=== PATIENT | male | born 1970 ===

== ENCOUNTER 2016-10-05 12:10 | Observation (INO) | payer SELFPAY ==
[2016-10-05] MEDS ORDERED: ONDANSETRON DISINTEGRATING 4 MG TAB PO PRN (15:25)
[2016-10-05] MEDS ORDERED: ACETAMINOPHEN 325 MG TAB PO PRN (15:25)
[2016-10-05] MEDS ORDERED: ONDANSETRON 4 MG/2 ML VIAL IVP PRN (15:25)
[2016-10-05 16:07] LABS: % IMMATURE GRANULYOCYTES 0.4 % (0.0-1.1); ABSOLUTE IMMATURE GRANULOCYTES 0.02 10^3/uL (0.00-0.10); ADD DIFF? NO; ADD MORPH? NO; ADD SCAN? NO; ATYPICAL LYMPHOCYTE FLAG 50 (0-99); FRAGMENT RBC FLAG 0 (0-99); HEMOGLOBIN 16.5 g/dL (13.7-17.5); LEFT SHIFT FLG 0 (0-99); LIPEMIA HEMOLYSIS FLAG 90 (0-99); MEAN CELL HEMOGLOBIN 30.4 pg (27.9-34.1); MEAN CELL HEMOGLOBIN CONCENTR. 34.4 g/dL (32.4-36.7); MEAN CELL VOLUME 88.4 fL (81.5-99.8); MEAN PLATELET VOLUME 10.1 fL (8.7-11.7); PLATELET CLUMPS FLAG 10 (0-99); PLATELET COUNT 216 10^3/uL (150-400); RED BLOOD CELL COUNT 5.43 10^6/uL (4.40-6.38); RED CELL DISTRIBUTION WIDTH 12.2 % (11.5-15.2)
--- NOTE | 2016-10-05 16:10 | GHP ---
[f rep st] HISTORY AND PHYSICAL DATE OF ADMISSION: 10/05/2016 DATE OF EVALUATION: 10/05/2016 CHIEF COMPLAINT: Worsening preseptal cellulitis. HISTORY OF PRESENT ILLNESS: This is a 45-year-old man who initially developed some pain in his right eye about 9 days ago. He was seen as an outpatient, started on eye drops at that point. He re-pres ented to [facility] with worsening symptoms. At that point, he was admitted, given IV Laura syn and clindamycin, then discharged with Augmentin as well as Bactrim. At some point after discharg e, which was on the 4th of this month, the symptoms went from his right eye and also affected his lef t eye. He thus represents to the stand-alone emergency room at [facility] for reevaluation. Today, he tells me that he has had some intermittent fevers. He has significant pain as well as phot ophobia bilaterally. He has some diplopia as well as pain with eye movements. He has been taking an tibiotics as prescribed. I have discussed with Dr. Flynn with Ophthalmology, who will see him peyman melendez. PAST MEDICAL/SURGICAL HISTORY: Hyperlipidemia. MEDICATIONS: Augmentin and Bactrim. ALLERGIES: No known drug allergies. FAMILY HISTORY: His mother had an GA. His father of adrenal cancer. SOCIAL HISTORY: He drinks occasionally. He does not smoke. He does have a history of IV drug use, but he has not used any intravenous drugs for about 5 years. REVIEW OF SYSTEMS: A 10-point review of systems is conducted and is negative except for HPI. PHYSICAL EXAM: VITAL SIGNS: Blood pressure 106/62, heart rate is 76, respiration rate 20, satting a t 93% on room air. Temperature is 37.1. GENERAL: The patient is a pleasant man who appears somewha t uncomfortable lying in a dark room. HEENT: Bilateral edema as well as erythema surrounding both o f his eyes, including his eyelids. Exam is difficult as he has trouble opening his eyes given the ed roxana as well as photophobia. He does have significant conjunctivitis as well as chemosis present. CA RDIOVASCULAR: Regular rate and rhythm. No murmurs, rubs, or gallops. PULMONARY: Lungs clear to au scultation bilaterally. ABDOMEN: Soft, nontender, nondistended. SKIN: No rash. He does have mult iple tattoos. : No Newell. NEUROLOGIC: Exam shows him to be alert and oriented x3. He is moving all extremities. PSYCHIATRIC: Normal mood and affect. LABS: I have ordered labs and these are pending at this time. DATA: 1. I discussed this with Dr. Flynn as above. 2. I have ordered a CT of his orbits as this was not brought with him. IMPRESSION AND PLAN: This is a 45-year-old man who presents with possible periorbital versus orbital cellulitis. 1. Cellulitis: I have discussed with Ophthalmology, who will see him. I have placed a call to Dr. Osborn with Infectious Disease to help guide antibiotic therapy. It seems the reasonable choices wou ld be vancomycin and Rocephin or vancomycin and Zosyn if this is orbital cellulitis. 2. History of IV drug use: I have ordered HIV as well as hepatitis. /[id number]/MODL
[2016-10-05 16:15] LABS: INR 1.05 (0.83-1.16); PROTIME(PATIENT) 13.6 SEC (12.0-15.0)
[2016-10-05] MEDS ORDERED: CEFEPIME HCL 2 GM in D5W 100 ML IV SCH ×2 (16:30→22:00)
[2016-10-05] MEDS ORDERED: VANCOMYCIN 1.25 GM in D5W 250 ML IV ONE (16:30)
[2016-10-05 16:33] LABS: ALANINE AMINOTRANSFERASE 55 IU/L (21-72); ALBUMIN 4.3 g/dL (3.5-5.0); ALKALINE PHOSPHATASE 57 IU/L (38-126); ANION GAP 11 mEq/L (8-16); ASPARTATE AMINOTRANSFERASE 29 IU/L (17-59); BILIRUBIN,TOTAL 0.7 mg/dL (0.1-1.4); CALCIUM 9.5 mg/dL (8.5-10.4); CARBON DIOXIDE 24 mEq/l (22-31); CHLORIDE 103 mEq/L (97-110); CREATININE 1.3 mg/dL (0.7-1.3); GLOMERULAR FILTRATION RATE 60; GLUCOSE 78 mg/dL (70-100); POTASSIUM 4.8 mEq/L (3.5-5.2); SODIUM 138 mEq/L (134-144); TOTAL PROTEIN 7.3 g/dL (6.3-8.2)
[2016-10-05] MEDS ORDERED: POLYMYXIN B SULFATE/TMP 10 ML OPHT.BTL EACHEYE SCH (18:00)
[2016-10-05] MEDS: TOBRAMYCIN/DEXAMETH 5 ML OPHT.BTL EACHEYE SCH ×2 (18:48→22:46)
[2016-10-05] MEDS: oxyCODONE IR 5 MG TAB PO PRN (18:48)
[2016-10-06] MEDS ORDERED: VANCOMYCIN HCL/NORMAL SALINE 250 ML IV ONE
[2016-10-06] MEDS: oxyCODONE IR 5 MG TAB PO PRN ×2 (02:45→20:37)
[2016-10-06] MEDS: TOBRAMYCIN/DEXAMETH 5 ML OPHT.BTL EACHEYE SCH ×6 (02:47→20:39)
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
[2016-10-06] MEDS ORDERED: VANCOMYCIN HCL/NORMAL SALINE 250 ML IV SCH (05:00)
--- NOTE | 2016-10-06 11:07 | HOSPPROG ---
Hospitalist Progress Note Assessment/Plan: * severe conjunctivitis * since he has been hospitalized once before and does not have good follow-up due to lack of insurance will keep another day to make sure that he is clearly improving before discharge * continue tobramycin/ dexamethasone drops * discuss with Infectious Disease - probable adenovirus Subjective: eyes feel little bit better today. Quite a bit of photosensitivity Objective: Vital Signs Temp Pulse Resp BP Pulse Ox 36.6 C 86 18 119/70 94 10/06/16 08:00 10/06/16 08:00 10/06/16 08:00 10/06/16 08:00 10/06/16 08:00 Laboratory Results 10/05/16 15:55 10/05/16 15:55 10/05/16 10/06/16 10/07/16 05:59 05:59 05:59 Intake Total 300 Balance 300 PT 13.6 SEC (12.0-15.0) 10/05/16 15:55 INR 1.05 (0.83-1.16) 10/05/16 15:55 - Physical Exam Constitutional: no apparent distress, appears nourished, not in pain Eyes: other ( bilateral severe conjunctivae injection with some periorbital erythema) Respiratory: no respiratory distress Neurologic: AAOx3 Psychiatric: interacting appropriately, not anxious, not encephalopathic, thought process linear
--- NOTE | 2016-10-06 11:21 | PCMIDPN ---
Assessment/Plan: Assessment/Plan: * Severe bilateral conjunctivitis: Left eye with slight improvement today which may be attributable to steroid portion of eye drops. Suspect this most likely will be related to adenovirus. No evidence of periorbital or orbital cellulitis. Skin changes under eyes likely related to edema from eye discharge and rubbing. Await respiratory virus PCR panel and urine GC/Chlamydia. Continue to observe off systemic antibacterials. Additional late entry: Respiratory virus PCR is positive for adenovirus. Highly suggestive that conjunctivitis is also due to adenovirus. 10/06/16 11:18 10/06/16 17:58 Subjective: Patient with less pain and irritation in left eye. Right eye still painful with photophobia and scratchy sensation. Objective: Vital Signs Temp Pulse Resp BP Pulse Ox 36.9 C 77 18 124/73 H 94 10/06/16 11:15 10/06/16 11:15 10/06/16 11:15 10/06/16 11:15 10/06/16 11:15 Laboratory Results 10/05/16 15:55 10/05/16 15:55 10/05/16 10/06/16 10/07/16 05:59 05:59 05:59 Intake Total 300 Balance 300 No antibiotic therapy TobraDex eyedrops Respiratory virus PCR panel pending Urine GC and Chlamydia pending - Physical Exam General Appearance: alert, other (Mild distress with opening of right greater than left eye) EENT: other (Marked bilateral conjunctival injection although less prominent on left; slight violaceous hue below both eyes with resolving edema; no erythema or periorbital tenderness) Respiratory: lungs clear, No respiratory distress Neck: supple Cardiac/Chest: regular rate, rhythm, No systolic murmur Lymphatic: no adenopathy (Preauricular location) ICD10 Worksheet Patient Problems: Problems Problem Status Diagnosed Conjunctivitis of both eyes Acute
[2016-10-06 12:00] LABS: RESPPCR RESULT SEE COMMENTS
[2016-10-06 13:23] LABS: CHLAMYDIA AMPLIFICATION GENPRB NEGATIVE (NEGATIVE)
[2016-10-07] MEDS: TOBRAMYCIN/DEXAMETH 5 ML OPHT.BTL EACHEYE SCH ×3 (01:06→09:57)
[2016-10-07] MEDS ORDERED: LORazepam 1 MG TAB PO ONE (03:42)
[2016-10-07 07:38] VITALS: BP 130/80; PULSE 93; RESP 16; TEMP 98.2; O2SAT 94
--- NOTE | 2016-10-07 11:39 | GDS ---
[f rep st] DISCHARGE SUMMARY DISCHARGE DIAGNOSES: 1. Adenovirus. 2. Conjunctivitis. HISTORY: This is a 45-year-old male who was recently admitted to [facility]. He presented wi th severe conjunctivitis and periorbital swelling bilaterally to [facility] and was transferre d here for ophthalmology referral. HOSPITAL COURSE: The patient was admitted. Ophthalmology did see the patient. They felt it was vir al conjunctivitis. Infectious Disease also saw the patient. He did undergo respiratory panel PCR an d it was positive for adenovirus. He was treated with tobramycin/dexamethasone eye drops, and he has been improving quite steadily. He will be discharged home. He does not have insurance, so we will be giving him the rest of the bottle that he has been using here, which should be enough eyedrops. /[id number]/MODL
[2016-10-07] MEDS ORDERED: TOBRAMYCIN/DEXAMETH 5 ML OPHT.BTL EACHEYE SCH (11:45)
== END 2016-10-07 14:10 | disposition home or self-care (01) ==
LOC: F3E 13:41
PROVIDERS: ADMIT Student in an Organized Health Care Education/Training Program; ATTEND Internal Medicine
DX: B30.1 Conjunctivitis due to adenovirus (principal); E78.5 Hyperlipidemia, unspecified; Z72.0 Tobacco use
CPT/HCPCS: G0378; J0692; J3370